=== PATIENT | male | born 1970 | race African-American/Black ===

== ENCOUNTER 2023-09-20 21:33 | Emergency (ER) | payer SELFPAY ==
[~2023-09-20] VITALS: Ht 175.3 cm; Wt 84.5 kg
[2023-09-20 21:40] VITALS: TEMP 97.6
[2023-09-20] MEDS ORDERED: ONDANSETRON HCL 4 MG/2 ML VIAL IVP ONE (22:30)
[2023-09-20] MEDS ORDERED: DEXAMETHASONE SOD PHOS 4 MG/ML 5 ML VIAL IVP ONE (22:30)
[2023-09-20] MEDS ORDERED: KETOROLAC TROMETHAMINE 30 MG/ML VIAL IVP ONE (22:30)
[2023-09-20 22:31] LABS: ANION GAP 7 mmol/L (8-16); CALCIUM, TOTAL 9.7 mg/dL (8.8-10.5); CARBON DIOXIDE 29 mmol/L (22-29); CHLORIDE 102 mmol/L (98-107); CREATININE 1.35 mg/dL (0.60-1.30); GLOMERULAR FILTR. RATE CALC > 60 mL/min (>60); GLUCOSE,RANDOM 116 mg/dL (70-110); POTASSIUM 3.7 mmol/L (3.5-5.1); SODIUM SERUM 138 mmol/L (136-145); UREA NITROGEN, BLOOD 25 mg/dL (7-18)
[2023-09-20 22:37] LABS: ALANINE AMINOTRANSFERASE 20 U/L (12-78); ALBUMIN 4.2 g/dL (3.4-5.0); ALKALINE PHOSPHATASE 59 U/L (46-116); ASPARTATE AMINOTRANSFERASE 16 U/L (15-37); BILIRUBIN,TOTAL 0.6 mg/dL (0.1-1.0); TOTAL PROTEIN, SERUM 8.2 g/dL (6.4-8.2)
[2023-09-20 22:47] VITALS: BP 136/91; PULSE 88; RESP 18
[2023-09-20 23:11] LABS: BASOPHILS % (AUTO) 0.5 % (0.0-2.0); EOSINOPHILS % (AUTO) 3.7 % (1.0-6.0); HEMOGLOBIN 14.6 g/dL (13.5-17.5); LYMPHOCYTES # (AUTO) 2.7 K/uL (1.0-4.8); LYMPHOCYTES % (AUTO) 45.6 % (22.0-44.0); MEAN CORPUSCULAR HEMOGLOBIN 32.3 pg (26.0-34.0); MEAN CORPUSCULAR VOLUME 95 fL (80-100); MONOCYTES # (AUTO) 0.6 K/uL (0.1-1.0); MONOCYTES % (AUTO) 10.6 % (2.0-9.0); NEUTROPHILS # (AUTO) 2.3 K/uL (1.8-7.7); NEUTROPHILS % (AUTO) 39.6 % (40.0-70.0); PLATELET COUNT (AUTO) 287 K/uL (150-450); RED BLOOD CELL COUNT(AUTO) 4.52 MIL/uL (4.50-5.90); RED CELL DISTRIBUTION WIDTH 13.2 % (11.5-14.5); WHITE BLOOD COUNT (AUTO) 5.9 K/uL (4.5-11.0)
== END 2023-09-20 23:34 | disposition home or self-care (01) ==
LOC: EMS 21:35
DX: G43.909 Migraine, unspecified, not intractable, without status migrainosus (principal); F07.81 Postconcussional syndrome; Z91.040 Latex allergy status
CPT/HCPCS: 99284; 96374; 96375; 80053; 85025; 36415; J1100; J1885; J2405

== ENCOUNTER 2024-07-02 02:16 | Emergency (ER) | payer OTHER ==
[~2024-07-02] VITALS: Ht 175.3 cm; Wt 90.0 kg
[2024-07-02 02:22] VITALS: TEMP 97.9
[2024-07-02 02:49] LABS: BASOPHILS % (AUTO) 0.6 % (0.0-2.0); EOSINOPHILS % (AUTO) 3.2 % (1.0-6.0); HEMOGLOBIN 14.6 g/dL (13.5-17.5); LYMPHOCYTES # (AUTO) 2.9 K/uL (1.0-4.8); LYMPHOCYTES % (AUTO) 49.7 % (22.0-44.0); MEAN CORPUSCULAR HEMOGLOBIN 31.3 pg (26.0-34.0); MEAN CORPUSCULAR HGB CONC 33.2 G/dL (31.0-37.0); MEAN CORPUSCULAR VOLUME 94 fL (80-100); MONOCYTES # (AUTO) 0.7 K/uL (0.1-1.0); MONOCYTES % (AUTO) 11.4 % (2.0-9.0); NEUTROPHILS # (AUTO) 2.1 K/uL (1.8-7.7); NEUTROPHILS % (AUTO) 35.1 % (40.0-70.0); PLATELET COUNT (AUTO) 301 K/uL (150-450); RED BLOOD CELL COUNT(AUTO) 4.66 MIL/uL (4.50-5.90); RED CELL DISTRIBUTION WIDTH 13.4 % (11.5-14.5); WHITE BLOOD COUNT (AUTO) 5.9 K/uL (4.5-11.0)
[2024-07-02 03:00] LABS: APPEARANCE,URINE CLEAR (CLEAR); BILIRUBIN,URINE NEGATIVE (NEGATIVE); COLOR,URINE LIGHT YELLOW (YELLOW); GLUCOSE, URINE (UA) NEGATIVE (NEGATIVE); KETONES,URINE NEGATIVE (NEGATIVE); LEUKOCYTE ESTERASE ,URINE NEGATIVE (NEGATIVE); NITRATE,URINE NEGATIVE (NEGATIVE); OCCULT BLOOD,URINE NEGATIVE (NEGATIVE); PROTEIN,URINE NEGATIVE (NEGATIVE); SPECIFIC GRAVITIY, URINE 1.024 (1.003-1.030); UROBILINOGEN,URINE <=1.0 mg/dL (<=1.0)
[2024-07-02 03:01] LABS: BACTERIA,URINE Rare /HPF (None Seen); RBC,URINE 0-2 /HPF (0-2); WBC,URINE 0-2 /HPF (0-5)
[2024-07-02 03:09] LABS: ANION GAP 12 mmol/L (8-16); CALCIUM, TOTAL 8.5 mg/dL (8.8-10.5); CARBON DIOXIDE 26 mmol/L (22-29); CHLORIDE 101 mmol/L (98-107); CREATININE 1.31 mg/dL (0.60-1.30); GLOMERULAR FILTR. RATE CALC > 60 mL/min (>60); GLUCOSE,RANDOM 91 mg/dL (70-110); POTASSIUM 3.8 mmol/L (3.5-5.1); SODIUM SERUM 139 mmol/L (136-145); UREA NITROGEN, BLOOD 16 mg/dL (7-18)
[2024-07-02 04:00] VITALS: BP 149/97; PULSE 80; RESP 16
[2024-07-02 04:29] LABS: LIPASE 64 U/L (16-77)
[2024-07-02] MEDS: KETOROLAC TROMETHAMINE 30 MG/ML VIAL IVP ONE (05:15)
[2024-07-02] MEDS: SODIUM CHLORIDE 0.9% 1,000 ML IV ONE (05:15)
[2024-07-02] MEDS ORDERED: IBUP-1554 PO (08:47)
[2024-07-02] MEDS ORDERED: PERCT PO (08:47)
[2024-07-02] MEDS: HYDROCODONE/ACETAMINOPHEN 5-325 MG TABLET PO ONE (09:10)
== END 2024-07-02 09:35 | disposition home or self-care (01) ==
LOC: EMS 02:16
DX: R10.31 Right lower quadrant pain (principal); Z91.041 Radiographic dye allergy status
CPT/HCPCS: 99285; 74176; 96374; 96361; 80048; 81001; 83690; 85025; 36415; 93005; 84145; J1885; J7030

== ENCOUNTER 2024-11-14 10:53 | Emergency (ER) | payer OTHER ==
[~2024-11-14] VITALS: Ht 175.3 cm; Wt 88.2 kg
[~2024-11-14 10:53] MED LIST: IBUP-1554 PO; PERCT PO
[2024-11-14 11:04] VITALS: TEMP 97.9
[2024-11-14 12:30] VITALS: BP 137/79; PULSE 74; RESP 18; O2SAT 99
== END 2024-11-14 13:06 | disposition home or self-care (01) ==
LOC: EMS 11:18
DX: M25.561 Pain in right knee (principal); Z91.041 Radiographic dye allergy status
CPT/HCPCS: 99283

== ENCOUNTER 2025-04-22 18:09 | Emergency (ER) | payer OTHER ==
[~2025-04-22] VITALS: Ht 175.3 cm; Wt 86.4 kg
[2025-04-22 18:15] VITALS: TEMP 98.2
[2025-04-22 21:28] LABS: BASOPHILS % (AUTO) 0.4 % (0.0-2.0); EOSINOPHILS % (AUTO) 1.4 % (1.0-6.0); HEMATOCRIT 46.1 % (41-53); HEMOGLOBIN 15.6 g/dL (13.5-17.5); LYMPHOCYTES # (AUTO) 2.9 K/uL (1.0-4.8); LYMPHOCYTES % (AUTO) 33.7 % (22.0-44.0); MEAN CORPUSCULAR HEMOGLOBIN 31.8 pg (26.0-34.0); MEAN CORPUSCULAR HGB CONC 33.9 G/dL (31.0-37.0); MEAN CORPUSCULAR VOLUME 94 fL (80-100); NEUTROPHILS # (AUTO) 4.5 K/uL (1.8-7.7); NEUTROPHILS % (AUTO) 52.5 % (40.0-70.0); PLATELET COUNT (AUTO) 304 K/uL (150-450); RED BLOOD CELL COUNT(AUTO) 4.91 MIL/uL (4.50-5.90); RED CELL DISTRIBUTION WIDTH 13.2 % (11.5-14.5); WHITE BLOOD COUNT (AUTO) 8.5 K/uL (4.5-11.0)
[2025-04-22 21:30] LABS: ANION GAP 3 mmol/L (8-16); CALCIUM, TOTAL 8.9 mg/dL (8.8-10.5); CARBON DIOXIDE 33 mmol/L (22-29); CHLORIDE 101 mmol/L (98-107); CREATININE 1.42 mg/dL (0.60-1.30); GLOMERULAR FILTR. RATE CALC > 60 mL/min (>60); GLUCOSE,RANDOM 100 mg/dL (70-110); POTASSIUM 4.3 mmol/L (3.5-5.1); SODIUM SERUM 137 mmol/L (136-145); UREA NITROGEN, BLOOD 16 mg/dL (7-18)
[2025-04-22 21:52] VITALS: BP 125/75; PULSE 68; RESP 18; O2SAT 100
[2025-04-22] MEDS ORDERED: IBUP-1554 PO (22:57)
[2025-04-22] MEDS ORDERED: HYDR30CR3 TP (22:57)
[2025-04-22] MEDS ORDERED: HYDR-4062 PO (22:57)
[2025-04-22] MEDS ORDERED: CEPH-558 PO (22:57)
[2025-04-22] MEDS ORDERED: POLY119P3 PO (23:04)
[2025-04-22] MEDS: IBUPROFEN 600 MG TABLET PO ONE (23:05)
[2025-04-22] MEDS: CEPHALEXIN MONOHYDRATE 500 MG CAPSULE PO ONE (23:05)
[2025-04-22] MEDS: HYDROCODONE/ACETAMINOPHEN 5-325 MG TABLET PO ONE (23:06)
== END 2025-04-23 03:43 | disposition home or self-care (01) ==
LOC: EMS 18:09
DX: K60.30 Anal fistula, unspecified (principal); Z91.041 Radiographic dye allergy status; Z79.899 Other long term (current) drug therapy; Z98.890 Other specified postprocedural states
CPT/HCPCS: 80048; 83690; 85025; 99284